=== PATIENT | male | born 1960 | race Caucasian/White ===

== ENCOUNTER 2021-08-28 12:48 | Emergency (ER) | payer MEDICAID ==
[~2021-08-28] VITALS: Ht 172.7 cm; Wt 81.6 kg
--- NOTE | 2021-08-28 12:58 | NUR ---
Pt ambulated to room 6 from [facility]
[2021-08-28 13:00] VITALS: BP 152/78
--- NOTE | 2021-08-28 13:10 | NUR ---
Dr Pabon at bedside to assess pt. Made aware of urine dip results and BS of 359
--- NOTE | 2021-08-28 13:20 | NUR ---
Pt taken to radiology for scan by wheelchair.
--- NOTE | 2021-08-28 14:11 | NUR ---
SUZIE Pabon at bedside to consult with pt.
[2021-08-28] MEDS ORDERED: IBUP-2809 PO (14:24)
[2021-08-28] MEDS ORDERED: METF-1243 PO (14:24)
[2021-08-28 14:44] VITALS: BP 141/74
--- NOTE | 2021-08-28 14:46 | NUR ---
Patient discharged with v/s stable. Written and verbal after care instructions given FOR MUSCULOSKELTAL PAIN and explained. Patient alert, oriented and verbalized understanding of instructions. Ambulatory with steady gait. All questions addressed prior to discharge. ID band removed. Patient advised to follow up with PMD. Rx of IBUPROFEN AND METFORMIN given. Patient educated on indication of medication including possible reaction and side effects. Opportunity to ask questions provided and answered.
== END 2021-08-28 14:45 | disposition home or self-care (01) ==
LOC: MED 12:48
DX: M25.512 Pain in left shoulder (principal); E11.65 Type 2 diabetes mellitus with hyperglycemia; F17.210 Nicotine dependence, cigarettes, uncomplicated; Z71.6 Tobacco abuse counseling; Z79.1 Long term (current) use of non-steroidal anti-inflammatories (NSAID); Z79.899 Other long term (current) drug therapy
CPT/HCPCS: 73030; 81002; 99283; Q0092